=== PATIENT | female | born 1970 | race Caucasian/White ===

== ENCOUNTER → 2017-01-26 | Outpatient (CLI) | payer OTHER ==
[~2017-01-26] MED LIST: GEMF600T3 PO; INSLAN SQ; INSNOV SQ; LISI10TA PO
== END | disposition home or self-care (01) ==
LOC: RADPV 10:56
PROVIDERS: ATTEND Internal Medicine Nephrology
DX: N18.9 Chronic kidney disease, unspecified (principal)
CPT/HCPCS: 76770

== ENCOUNTER 2022-06-11 18:20 | Emergency (ER) | payer OTHER ==
[~2022-06-11] VITALS: Ht 160 cm; Wt 104.5 kg
[~2022-06-11 18:20] MED LIST changes: -GEMF600T3 PO; +GEMF600T89 PO
[2022-06-11] MEDS ORDERED: IBUP-2077 PO (18:53)
[2022-06-11] MEDS ORDERED: LISI-894 PO (18:53)
[2022-06-11] MEDS ORDERED: SERT-158 PO (18:53)
[2022-06-11] MEDS ORDERED: INSU100I26 SQ (18:53)
[2022-06-11] MEDS ORDERED: ATOR40TA28 PO (18:53)
[2022-06-11] MEDS ORDERED: ASCO500 PO (18:53)
[2022-06-11] MEDS ORDERED: DOXY-354 PO (18:53)
[2022-06-11] MEDS ORDERED: AMLO-258 PO (18:53)
[2022-06-11] MEDS ORDERED: INSU100V36 SQ (18:53)
[2022-06-11] MEDS ORDERED: ASPI-1444 PO (18:53)
[2022-06-11] MEDS ORDERED: CEPH500C2 PO (18:53)
[2022-06-11] MEDS ORDERED: METF-1211 PO (18:53)
[2022-06-11 19:03] LABS: BASOPHILS % (AUTO) 0.9 % (0.0-2.0); EOSINOPHILS % (AUTO) 2.9 % (1.0-6.0); HEMATOCRIT 43.6 % (36-46); HEMOGLOBIN 14.8 g/dL (12.0-16.0); LYMPHOCYTES # (AUTO) 3.5 K/uL (1.0-4.8); LYMPHOCYTES % (AUTO) 32.3 % (22.0-44.0); MEAN CORPUSCULAR HEMOGLOBIN 29.2 pg (26.0-34.0); MEAN CORPUSCULAR HGB CONC 33.8 G/dL (31.0-37.0); MEAN CORPUSCULAR VOLUME 86 fL (80-100); MONOCYTES # (AUTO) 0.5 K/uL (0.1-1.0); NEUTROPHILS # (AUTO) 6.3 K/uL (1.8-7.7); NEUTROPHILS % (AUTO) 58.9 % (40.0-70.0); PLATELET COUNT (AUTO) 345 K/uL (150-450); RED BLOOD CELL COUNT(AUTO) 5.06 MIL/uL (4.00-5.20); RED CELL DISTRIBUTION WIDTH 14.7 % (11.5-14.5)
[2022-06-11 19:05] VITALS: BP 141/90
[2022-06-11 19:11] LABS: CALCIUM, TOTAL 9.5 mg/dL (8.8-10.5); CREATININE 1.12 mg/dL (0.60-1.30); POTASSIUM 4.6 mmol/L (3.5-5.1)
== END 2022-06-11 21:09 | disposition home or self-care (01) ==
LOC: EMS 18:26
DX: E87.5 Hyperkalemia (principal); Z13.89 Encounter for screening for other disorder; E11.9 Type 2 diabetes mellitus without complications; E78.00 Pure hypercholesterolemia, unspecified; I10 Essential (primary) hypertension; E66.9 Obesity, unspecified; G62.9 Polyneuropathy, unspecified; Z98.51 Tubal ligation status; Z98.890 Other specified postprocedural states; Z88.5 Allergy status to narcotic agent
CPT/HCPCS: 80048; 82962; 85025; 99283